=== PATIENT | female | born 1980 ===

== ENCOUNTER 2017-10-16 16:24 | Emergency (ER) | payer SELFPAY ==
[2017-10-16 16:24] VITALS: BMI 30.9
[2017-10-16 16:52] VITALS: RESP 18; TEMP 98.3
--- NOTE | 2017-10-16 17:52 | ED PDOC ---
HPI: Abdomen Time Seen by Provider: 10/16/17 16:40 Chief Complaint (Nursing): Abdominal Pain Chief Complaint (Provider): Abdominal Pain History Per: Patient History/Exam Limitations: no limitations Onset/Duration Of Symptoms: Hrs Current Symptoms Are (Timing): Still Present Associated Symptoms: Other (dysuria). denies: Fever, Vomiting Additional Complaint(s): 36 year old female, with one ectopic and one miscarriage, states she is about 8 weeks and presents to the ED complaining of lower abdominal pain associated with dysuria since last night. Denies fever, vomiting , and vaginal bleeding. PMD: None Provided : 6 (1 ectopic ) Para: 3 Miscarriage: 1 Past Medical History Reviewed: Historical Data, Nursing Documentation, Vital Signs Vital Signs: Last Vital Signs Temp 98.3 F 10/16/17 16:49 Pulse 74 10/16/17 21:59 Resp 18 10/16/17 21:59 BP 102/53 L 10/16/17 21:59 Pulse Ox 97 10/16/17 21:59 - Medical History PMH: Kidney Stones - Surgical History Surgical History: No Surg Hx - Family History Family History: States: Unknown Family Hx - Social History Current smoker - smoking cessation education provided: No Alcohol: None Drugs: Denies - Immunization History Hx Tetanus Toxoid Vaccination: No Hx Influenza Vaccination: No Hx Pneumococcal Vaccination: No - Home Medications Home Medications: Ambulatory Orders Medication Instructions Recorded Nitrofurantoin Macrocrystals 100 mg PO BID #14 cap 07/27/14 [Macrobid] Ondansetron ODT [Zofran ODT] 4 mg PO Q6 PRN #10 odt 09/04/15 No Known Home Med 09/23/16 - Allergies Allergies/Adverse Reactions: Allergies Allergy/AdvReac Type Severity Reaction Status Date / Time No Known Allergies Allergy Verified 04/23/16 13:20 Review of Systems Constitutional: Negative for: Fever Gastrointestinal: Positive for: Abdominal Pain (lower abdominal pain ). Negative for: Vomiting Genitourinary Female: Positive for: Dysuria. Negative for: Vaginal Bleeding Physical Exam - Reviewed Nursing Documentation Reviewed: Yes Vital Signs Reviewed: Yes - Physical Exam Appears: Positive for: Non-toxic, No Acute Distress Head Exam: Positive for: ATRAUMATIC, NORMOCEPHALIC Skin: Positive for: Normal Color, Warm, Dry Eye Exam: Positive for: Normal appearance, EOMI, PERRL ENT: Positive for: Normal ENT Inspection Neck: Positive for: Normal, Painless ROM, Supple Cardiovascular/Chest: Positive for: Regular Rate, Rhythm. Negative for: Murmur Respiratory: Positive for: Normal Breath Sounds. Negative for: Respiratory Distress Gastrointestinal/Abdominal: Positive for: Normal Exam, Tenderness (suprapubic and left adnexal tenderness ) Back: Positive for: Normal Inspection. Negative for: L CVA Tenderness, R CVA Tenderness, Vertebral Tenderness Extremity: Positive for: Normal ROM. Negative for: Pedal Edema, Deformity Neurologic/Psych: Positive for: Alert, Oriented. Negative for: Motor/Sensory Deficits - Laboratory Results Result Diagrams: 10/16/17 17:40 10/16/17 17:40 - ECG O2 Sat by Pulse Oximetry: 99 (RA) Pulse Ox Interpretation: Normal Medical Decision Making Medical Decision Making: Time: 1727 Plan: -- Beta-HCG Quantitative -- CMP -- CBC with differentials -- Tylenol 650 mg PO -- Urine C&S -- Urinalysis US no acute findings labs reviewed, pt is not . pt resting comfortably in bed in [facility] Time: 2008 -- Spoke with patient using induction coordination power engineer regarding lab results and US report. Pt instructed to follow up with outpatient gynecology. Scribe Attestation: Documented by Dee Dee Sequeira, acting as a scribe for Dr. Cortes Hernandez MD Provider Scribe Attestation: All medical record entries made by the Scribe were at my direction and personally dictated by me. I have reviewed the chart and agree that the record accurately reflects my personal performance of the history, physical exam, medical decision making, and the department course for this patient. I have also personally directed, reviewed, and agree with the discharge instructions and disposition. Disposition - Clinical Impression Clinical Impression: Adnexal pain - Patient ED Disposition Is Patient to be Admitted: No Counseled Patient/Family Regarding: Studies Performed, Diagnosis, Need For Followup - Disposition Referrals: [facility] [Outside] [facility] [Outside] Disposition: Routine/Home Disposition Time: 19:00 Condition: IMPROVED Additional Instructions: follow up with in [facility] return to the ED with any worsening or concerning symptoms Instructions: Chronic Pelvic Pain in Women Forms: [facility] (Georgian) Print Language: URUGUAYAN
[2017-10-16 18:07] LABS: SQUAMOUS EPITHIAL 2 /hpf (0-5); URINE BACTERIA RARE (<OCC); URINE BILIRUBIN NEGATIVE (NEGATIVE); URINE BLOOD SMALL (NEGATIVE); URINE CLARITY SLIGHTY-CLOUDY (Clear); URINE COLOR YELLOW (YELLOW); URINE GLUCOSE (UA) NEG (Normal); URINE LEUKOCYTE ESTERASE NEG Leu/uL (Negative); URINE PROTEIN NEGATIVE (NEGATIVE); URINE UROBILINOGEN 0.2-1.0 mg/dL (0.2-1.0)
[2017-10-16 18:28] LABS: BASO # 0.1 K/uL (0.0-0.2); BASO % 0.7 % (0.0-2.0); EOS # 0.5 K/uL (0.0-0.7); EOS % 5.3 % (0.0-4.0); HEMOGLOBIN 12.5 g/dL (12.0-16.0); LYMPH # 2.9 K/uL (1.0-4.3); LYMPH % 28.3 % (20.0-40.0); MEAN CELL VOLUME 87.9 fl (81.0-99.0); MEAN CORPUSCULAR HGB CONC 34.1 g/dL (33.0-37.0); MEAN PLATELET VOLUME 8.6 fl (7.2-11.7); MONO # 0.6 K/uL (0.0-0.8); MONO % 6.3 % (0.0-10.0); NEUT # 6.1 K/uL (1.8-7.0); NEUT % 59.4 % (50.0-75.0); RBC 4.16 Mil/uL (3.80-5.20); RED CELL DISTRIBUTION WIDTH 13.6 % (11.5-14.5); WHITE BLOOD COUNT 10.2 K/uL (4.8-10.8)
[2017-10-16 19:17] LABS: ALBUMIN 3.9 g/dL (3.5-5.0); ALT/SGPT 46 U/L (9-52); AST/SGOT 36 U/L (14-36); BLOOD UREA NITROGEN 14 mg/dl (7-17); CALCIUM 8.5 mg/dL (8.4-10.2); GFR AFRICAN-AMERICAN > 60; GFR NON-AFRICAN AMERICAN > 60
[2017-10-16 22:04] VITALS: BP 102/53; PULSE 74
--- NOTE | 2017-10-17 09:29 | US ---
HISTORY: left adnexal pain COMPARISON: Pelvic ultrasound dated 12/06/2008. TECHNIQUE: Grayscale, color Doppler and spectral evaluation the pelvis performed transvaginally FINDINGS: UTERUS: Measures 8.2 x 4.9 x 4.0 cm. Anteverted. Normal in size and appearance. No fibroid or other mass lesion seen. ENDOMETRIUM: Measures 8 mm in diameter. Unremarkable. CERVIX: No cervical abnormality identified. RIGHT OVARY: Measures 3.5 x 3.2 x 2.2 cm. No solid mass. Normal flow. LEFT OVARY: Measures 2.7 x 2.4 x 2.5 cm. Corpus luteal follicle measuring 0.9 x 0.8 x 0.9 cm. Normal flow. FREE FLUID: No significant free fluid noted. OTHER FINDINGS: None. IMPRESSION: Unremarkable pelvic ultrasound.
[2017-10-17 15:46] VITALS: O2SAT 99
== END 2017-10-16 22:04 | disposition home or self-care (01) ==
LOC: H.ER 16:24
DX: O26.899 Other specified pregnancy related conditions, unspecified trimester (principal)